=== PATIENT | female | born 1960 | race Two or more races ===

== ENCOUNTER 2024-10-08 16:15 | Emergency (ER) | payer MEDICAID ==
[~2024-10-08] VITALS: Ht 165.1 cm; Wt 70.0 kg
[2024-10-08 16:23] VITALS: O2SAT 99
[2024-10-08 17:05] LABS: BASOPHILS % 0.7 % (0.0-2.0); EOSINOPHILS % 0.8 % (0.0-5.0); HEMATOCRIT. 38.3 % (36.0-48.0); HEMOGLOBIN. 13.3 g/dL (12.0-16.0); LYMPHOCYTES % 30.7 % (20.0-50.0); MEAN PLATELET VOLUME 8.8 fl (7.4-10.4); MONOCYTES % 8.0 % (2.0-8.0); NEUTROPHILS % 59.8 % (40.0-76.0); PLATELET 242 x1000/uL (130-400); RED BLOOD CELL COUNT 4.12 mill/uL (4.2-5.4); RED CELL DISTRIBUTION WIDTH 13.4 % (11.6-14.6)
[2024-10-08 17:17] LABS: CREATININE 1.0 mg/dL (0.6-1.0)
[2024-10-08 17:18] LABS: ETHANOL BLOOD 212 mg/dL (<10); UREA NITROGEN BLOOD 16 mg/dL (9-23)
[2024-10-08 17:19] LABS: ASPARTATE AMINOTRANSFERASE 29 IU/L (<34)
[2024-10-08 17:20] LABS: BILIRUBIN DIRECT 0.3 mg/dL (<=3.0); BILIRUBIN TOTAL 0.7 mg/dL (0.1-1.0); PROTEIN TOTAL 7.2 g/dL (6.0-8.3)
[2024-10-08 18:57] VITALS: BP 138/88; PULSE 54; RESP 19; TEMP 36.5; O2SAT 99
== END 2024-10-08 18:57 | disposition home or self-care (01) ==
LOC: ER 16:15
DX: F10.129 Alcohol abuse with intoxication, unspecified (principal); F17.200 Nicotine dependence, unspecified, uncomplicated; I11.0 Hypertensive heart disease with heart failure; I50.9 Heart failure, unspecified; Z88.5 Allergy status to narcotic agent; Y90.7 Blood alcohol level of 200-239 mg/100 ml
CPT/HCPCS: 80076; 80048; 80320; 83880; 85025; 36415; 99284; Z7610; A4606; G0480